=== PATIENT | female | born 1980 ===

== ENCOUNTER 2017-01-28 06:06 | Observation (INO) | payer OTHER ==
[2017-01-26 11:55] VITALS: BMI 25.8
[2017-01-28] MEDS ORDERED: Lactated Ringer's 1,000 ML IV ONE ×3 (07:15→15:30)
[2017-01-28] MEDS ORDERED: Rocuronium 10 mg/ml (5 ml) ONE ×2 (07:27→11:23)
[2017-01-28] MEDS ORDERED: Midazolam 2 MG/2 ML VIAL ONE (07:27)
[2017-01-28] MEDS ORDERED: ePHEDrine 50 mg/ml Inj ONE (07:27)
[2017-01-28] MEDS ORDERED: Propofol 10 mg/ml Inj (20 ML) ONE (07:27)
[2017-01-28] MEDS ORDERED: Succinylcholine 200 mg/10 ml Inj IV ONE (07:27)
[2017-01-28] MEDS ORDERED: Lidocaine 4% (Laryng-O-Jet) Kit MM ONE (07:28)
[2017-01-28] MEDS ORDERED: Bupivacaine 0.5% Inj(30mL) ONE (07:29)
[2017-01-28] MEDS ORDERED: Dexamethasone 4 mg/1 ml ONE (10:10)
[2017-01-28] MEDS ORDERED: HEMOSTATIC MATRIX 10 ML DIS.NEEDLE TOP ONE (11:40)
[2017-01-28] MEDS ORDERED: Desflurane Inhalation Anesthetic Liq (240 ml) ONE (12:16)
[2017-01-28] MEDS ORDERED: Methylene Blue 10 mg/mL(10ml) IV ONE (12:18)
[2017-01-28] MEDS ORDERED: Neostigmine Methylsulfate 3mg/3ml Syringe IV ONE (12:24)
[2017-01-28] MEDS ORDERED: SULFANILAMIDE (AVC) VAG CREAM VG ONE (12:28)
[2017-01-28] MEDS ORDERED: Lactated Ringer's 1,000 ML IV SCH ×2 (13:00)
[2017-01-28] MEDS ORDERED: ceFAZolin 1 GM in Sodium Chloride 0.9% 100 ML IVPB SCH (13:00)
[2017-01-28] MEDS: HYDROmorphone 0.5 mg/0.5 ml ISec IVP PRN ×3 (13:20→14:05)
[2017-01-28 16:45] VITALS: O2SAT 100
[2017-01-28] MEDS: ceFAZolin 1 GM in Sodium Chloride 0.9% 100 ML IVPB SCH (16:57)
[2017-01-28] MEDS: Oxycodone/Acetaminophen 5/325 mg Tab PO PRN ×2 (17:04→22:41)
--- NOTE | 2017-01-28 19:41 | OP ---
PROCEDURE DATE: 01/28/2017 PREOPERATIVE DIAGNOSES: A 36-year-old female with menorrhagia, irregular menstrual period, failure of medical and surgical therapy. POSTOPERATIVE DIAGNOSES: A 36-year-old female with menorrhagia, irregular menstrual period, failure of medical and surgical therapy. PROCEDURE: Robotic-assisted hysterectomy, bilateral salpingectomy as well as cystoscopy. SURGEON: Christine Lombardi MD MECHATRONICS ENGINEER: Dr. Rendon, helped to create exposure. He was helpful in obtaining hemostasis, helpful in extracting the specimen and closure of the patient. The procedure would not have been possible without his assistance TYPE OF ANESTHESIA: General. FINDINGS: An anteverted uterus of approximately 15 weeks' gestation. Noted that on the right side she had a paratubal cyst. Ovaries were completely normal. COMPLICATIONS: None. ESTIMATED BLOOD LOSS: Approximately 50 mL. IV FLUIDS: 2 liters. URINE OUTPUT AT THE END OF THE PROCEDURE: 200 mL. DESCRIPTION OF PROCEDURE: The patient was informed of the risks, benefits and alternatives of the procedure. The risks that included infection, bleeding, damage to the surrounding organs, complications from anesthesia and possible . She was also informed that once the uterus has been removed, there was no way that she can become in the future. Aside from that, she was also informed that if she was undergoing the hysterectomy due to chronic pelvic pain, due to the adhesions, chronic pelvic pain can reoccur. All questions were answered prior to obtaining a consent form. Once the consent form was obtained, she was then taken to the operating room, prepped and draped in a normal sterile fashion. In that particular instance, the patient was placed in dorsal lithotomy position. A weighed speculum was placed into the vagina. The anterior lip of the cervix was grasped with single-tooth tenaculum. The uterus was firmly sounded to approximately 10 cm. Upon complete uterine dilation, the VCare device was inserted in order to manipulate the uterine cavity. It was also noted that the VCare was placed in proper position. Once done, attention was then turned to the patient's abdomen with superior to the umbilicus. Marcaine was then infused, where an 8-mm incision was made. The abdomen was then tented up and a Veress needle was inserted into abdominal cavity. Placement was confirmed with a fluid-filled syringe. The abdomen was insufflated to 15 mmHg. An 8 mm robotic port was then introduced into the abdominal cavity and placement was confirmed with the laparoscope. The abdomen was then surveyed with the findings noted above. Attention was then turned to approximately 20 cm right side, lateral to the supraumbilical incision. Marcaine was then infused and 8-mm port was inserted under direct visualization. Similar procedure was performed to the right and lateral, approximately 10 cm lateral to the umbilicus. Attention was then turned to the left side of the abdomen. Marcaine was infused approximately 10 cm left and lateral and an 8-mm incision was made and the robotic port was introduced under visualization. A 5 mm ex assistant/program director port was introduced in the abdominal cavity, 10 cm left and lateral to the umbilicus. The patient was then placed in Trendelenburg and table lowered and robot was brought along the patient's side and docked. Instruments used for the surgery were the PK dilator, the ankit suture, scissor and the ProGrasp. The instruments were then inserted into the abdomen. I then proceeded to break scrub and went to the surgical console. At this point, attention was then turned to the right rounded ligament. Dr. Rendon helped to create the exposure. He was helpful in extraction of the specimen and the procedure would not be possible without his assistance. In that particular instance, attention was then turned to the utero-ovarian ligament, which in a similar fashion was transected with a suture. The anterior vesicouterine peritoneum was then undermined with the PK, dissected down to the level of the VCare cup, cut with this scissors. The VCare cup was then identified anteriorly. Attention was then turned to the posterior aspect of the uterus, which in a similar fashion in the posterior aspect of the peritoneum. The leaf of the broad ligament was undermined with PK dissector and cut with the scissors down to the level with the VCare cup posteriorly. The uterine artery was then skeletonized and cauterized at the level of the VCare, transected with the scissors. Attention was then turned to the right rounded ligament. It was then sterilely cauterized and transected with the scissors. The utero-ovarian ligament was then identified, serially cauterized and transected with the scissors. The vesicouterine peritoneum was then undermined down to the level of the VCare anteriorly. At this point, we encountered some adhesions; lysis of adhesions was performed due to her previous . We mobilized the bladder with using a series of blunt and sharp dissector with the VCare. In that particular instance, the uterine artery was then skeletonized and transected with the PK. The cuff was identified anteriorly and posterior. The colpotomy was made with sharp scissors carried through the circumferential fashion. Excellent hemostasis was noted. The uterus and the cervix was then delivered vaginally. The vaginal cuff was closed with 2-0 Vicryl in a running fashion using the V-Loc. The abdomen was then irrigated, hemostasis was assured, instruments were then removed from the abdominal cavity. The skin was closed with Biosyn and Dermabond. In that particular instance, cystoscopy was then performed. The dome of the bladder was identified and it was intact. The ureters were identified. The procedure was then terminated. The patient tolerated the procedure well. Sponge, lap, and needle count were correct x2. The patient was then taken to the recovery room in stable condition. Christine Lombardi MD ELSY
[2017-01-29] MEDS: ceFAZolin 1 GM in Sodium Chloride 0.9% 100 ML IVPB SCH ×2 (00:45→09:13)
[2017-01-29 08:09] LABS: HEMATOCRIT 26.5 % (34.0-47.0); MEAN CELL VOLUME 76.6 fl (81.0-99.0); MEAN CORPUSCULAR HEMOGLOBIN 23.9 pg (27.0-31.0); MEAN CORPUSCULAR HGB CONC 31.2 g/dL (33.0-37.0); RED CELL DISTRIBUTION WIDTH 15.1 % (11.5-14.5); WHITE BLOOD COUNT 8.3 K/uL (4.8-10.8)
[2017-01-29 08:32] VITALS: BP 108/58
[2017-01-29] MEDS: Oxycodone/Acetaminophen 5/325 mg Tab PO PRN (09:13)
[2017-01-29 12:35] VITALS: PULSE 87; RESP 20; TEMP 98.7
--- NOTE | 2017-01-29 15:30 | CP.PCM.CON ---
History of Present Illness - History of Present Illness History of Present Illness: Omayra Shaw is a pleasant 36 yo lady POD1: Robotic assisted hysterectomy with bilateral salpingectomy and cystoscopy on 01/28/2017 due to history of menorrhagia, irregular menstrual periods and failure of medical and surgical therapy. She was seen and examined at bedside. She was resting well in her bed; She denies overnight events. She shares of slight lower abdominal pain rated at 2/10, non radiating, dull. Dressing bandages x5 are clear and without signs of bleed. She denies vaginal bleeding; She is able to void freely; no burning. She shares of flatulence but no bowel movements, yet. Denies chills, nausea, vomiting, chest pain, shortness of breath, lightheadedness or calf pain. She is able to ambulate freely. H/H: 01/29/2017 8.3/26.5 General: pleasant, in no acute distress HEENT: normocephalic, PERRLA; AAOx3 Heart: no murmurs, regular rate and rhythm, S1, S2 normal. Lungs: clear to auscultation bilaterally, no wheezing Abdomen: mild tenderness at incision site x5 CVA: negative Lower extremities: negative for pitting edema Pt instructed to continue taking FeSO4 (pre prescribed) for anemia; She is scheduled to f/u with Dr. Lombardi on Tuesday. Cleared for discharge today 01/29/2017 Case d/w Dr. Rendon. [facility] PGY1 Past Patient History - Infectious Disease Hx of Infectious Diseases: None - Past Medical History & Family History Past Medical History?: Yes - Past Social History Smoking Status: Never Smoked - CARDIAC Hx Cardiac Disorders: No Hx Hypertension: Yes - PULMONARY Hx Respiratory Disorders: No - NEUROLOGICAL Hx Neurological Disorder: No Hx Vertigo: Yes - HEENT Hx HEENT Problems: Yes Other/Comment: HX OF CORNEA TRANSPLANT - RENAL Hx Chronic Kidney Disease: No - ENDOCRINE/METABOLIC Hx Endocrine Disorders: No - HEMATOLOGICAL/ONCOLOGICAL Hx Blood Disorders: No - INTEGUMENTARY Hx Dermatological Problems: No - MUSCULOSKELETAL/RHEUMATOLOGICAL Hx Musculoskeletal Disorders: No Hx Back Pain: Yes - GASTROINTESTINAL Hx Gastrointestinal Disorders: No Hx Gastritis: Yes - GENITOURINARY/GYNECOLOGICAL Hx Genitourinary Disorders: No - PSYCHIATRIC Hx Psychophysiologic Disorder: No Hx Emotional Abuse: No Hx Physical Abuse: No Hx Substance Use: No - SURGICAL HISTORY Hx Surgeries: Yes Hx Section: Yes (X2) Hx Eye Surgery: Yes (CORNEA TRANSPLANT O.D 2012) Hx Orthopedic Surgery: Yes (hand surgery 2002) Other/Comment: GASTRIC SLEEVE 12/05/2015 - ANESTHESIA Hx Anesthesia: Yes Hx Anesthesia Reactions: No Hx Malignant Hyperthermia: No Has any member of the family had a problem w/ anesthesia?: No Meds Allergies/Adverse Reactions: Allergies Allergy/AdvReac Type Severity Reaction Status Date / Time No Known Allergies Allergy Verified 01/28/17 06:19 - Medications Medications: Current Medications Lactated Ringer's (Lactated Ringer's) 1,000 mls @ 125 mls/hr IV .Q8H JYOTI Last Admin: 01/29/17 00:46 Dose: 125 mls/hr Lactated Ringer's (Lactated Ringer's) 1,000 mls @ 125 mls/hr IV .Q8H JYOTI Ketorolac Tromethamine (Toradol) 30 mg IVP Q6 PRN PRN Reason: Pain, Mild (1-3) Last Admin: 01/28/17 13:50 Dose: 30 mg Oxycodone/Acetaminophen (Percocet 5/325 Mg Tab) 1 tab PO Q4 PRN PRN Reason: Pain, moderate (4-7) Stop: 01/31/17 12:53 Last Admin: 01/29/17 09:13 Dose: 1 tab Results - Vital Signs Recent Vital Signs: Last Vital Signs Temp 98.7 F 01/29/17 12:25 Pulse 87 01/29/17 12:25 Resp 20 01/29/17 12:25 BP 108/58 L 01/29/17 08:15 Pulse Ox 100 01/29/17 12:25 - Labs Result Diagrams: 01/29/17 07:00 Labs: Laboratory Results - last 24 hr 01/29/17 07:00 WBC 8.3 RBC 3.46 L Hgb 8.3 L Hct 26.5 L MCV 76.6 L MCH 23.9 L MCHC 31.2 L RDW 15.1 H Plt Count 309
--- NOTE | 2017-01-31 11:42 | OP ---
PROCEDURE DATE: 01/28/2017 SURGEON: Christine Lombardi MD TAPE SEWING MACHINE OPERATOR: Robbie Rendon MD ANESTHESIA ADMINISTERED BY: Kiara Ariza MD TYPE OF ANESTHESIA: General. My involvement in the case; I helped to create exposure. I was helpful in obtaining hemostasis. I was helpful in extracting the specimen and closure of the patient. The procedure would not have been possible without my assistance. Robbie Rendon MD
== END 2017-01-29 15:30 | disposition home or self-care (01) ==
LOC: H.OPSURG 06:06 → H.PEDS 12:52
PROVIDERS: ADMIT Obstetrics & Gynecology; ATTEND Obstetrics & Gynecology
DX: N83.8 Other noninflammatory disorders of ovary, fallopian tube and broad ligament (principal); N85.4 Malposition of uterus; N92.0 Excessive and frequent menstruation with regular cycle; I10 Essential (primary) hypertension; Z94.7 Corneal transplant status
CPT/HCPCS: 36415; 52000; 58571; 85027; 86850; 86900; 88305; G0378; J0330; J0690; J1100; J1170; J1885; J2250; J2405; J2704; J2710; J2765; J3010; J7120; S2900